=== PATIENT | female | born 1970 | race Caucasian/White ===

== ENCOUNTER 2019-06-24 14:29 | Emergency (ER) | payer OTHER ==
[~2019-06-24] VITALS: Ht 152.4 cm; Wt 60.0 kg
[~2019-06-24 14:29] MED LIST: CIPR500T4 PO; FER325 PO; HYDR-3601 ORAL; HYDR-4011 PO
[2019-06-24 14:34] VITALS: Ht 152.4 cm; Wt 60.0 kg
[2019-06-24] MEDS ORDERED: HYDROmorphONE 1 MG/ML SYG IV STA (16:09)
[2019-06-24] MEDS ORDERED: ONDANSETRON 4 MG INJ IV STA (16:09)
[2019-06-24 18:08] VITALS: BP 121/71; PULSE 70; RESP 14
== END 2019-06-24 18:09 | disposition home or self-care (01) ==
LOC: E/R 14:29
DX: K80.50 Calculus of bile duct without cholangitis or cholecystitis without obstruction (principal); D64.9 Anemia, unspecified
CPT/HCPCS: 76705; 80053; 83690; 84703; 85025; 96374; 96375; J1170; J2405; Z7502

== ENCOUNTER 2019-06-25 11:17 | Inpatient (IN) | payer OTHER ==
[~2019-06-25] VITALS: Ht 152.4 cm; Wt 64.5 kg
[2019-06-25 11:26] VITALS: Ht 152.4 cm; Wt 64.5 kg
[2019-06-25] MEDS ORDERED: ONDANSETRON 4 MG INJ IV STA (11:31)
[2019-06-25] MEDS ORDERED: morphine 4 MG/ML VIAL IV STA (11:31)
[2019-06-25] MEDS ORDERED: NACL 0.9% 3 ML SYG IV SCH (12:30)
[2019-06-25] MEDS ORDERED: ONDANSETRON 4 MG INJ IV PRN (12:30)
[2019-06-25] MEDS ORDERED: ACETAMINOPHEN 325 MG TAB PO PRN ×2 (12:30)
[2019-06-25] MEDS: PIPER-TAZO 3.375 GM IV (PMX) 100 ML IVPB SCH ×3 (12:51→23:18)
[2019-06-25] MEDS ORDERED: hydrALAzine 20 MG INJ IV PRN (13:00)
[2019-06-25] MEDS: SOD CHLORIDE 0.9% 1,000 ML IV SCH ×2 (13:00→20:59)
[2019-06-25] MEDS ORDERED: SOD FERRIC GLUC COMPLX 125 MG in SOD CHLORIDE 0.9% 100 ML IVPB ONE (14:30)
[2019-06-25] MEDS ORDERED: CEFTRIAXONE 1 GM/50 ML (PMX) 50 ML IVPB ONE (15:00)
[2019-06-25 20:30] VITALS: BP 126/67; PULSE 73; RESP 20
[2019-06-25] MEDS: ONDANSETRON 4 MG INJ IV PRN (20:52)
[2019-06-25] MEDS: morphine 2 MG INJ IV PRN (20:52)
[2019-06-26] VITALS (13 sets, daily range): BP systolic 103–146; BP diastolic 57–82; PULSE 58–98; RESP 10–26
[2019-06-26] MEDS: PIPER-TAZO 3.375 GM IV (PMX) 100 ML IVPB SCH ×4 (05:09→23:04)
[2019-06-26] MEDS: morphine 2 MG INJ IV PRN ×3 (05:10→22:09)
[2019-06-26] MEDS ORDERED: FLU VACC QS 2019-20 (6MOS UP) 0.5 ML SYG IM* ONE (09:00)
[2019-06-26] MEDS ORDERED: ROCURONIUM 50 MG INJ ONE (12:49)
[2019-06-26] MEDS ORDERED: MIDAZOLAM 1 MG/ML 2 ML INJ ONE (12:49)
[2019-06-26] MEDS ORDERED: ROPIVACAINE 0.5 % 30 ML VIAL ONE (12:52)
[2019-06-26] MEDS ORDERED: METOCLOPRAMIDE 10 MG INJ ONE (12:52)
[2019-06-26] MEDS ORDERED: NEOSTIGMINE 3 MG/3 ML SYRINGE ONE (13:16)
[2019-06-26] MEDS ORDERED: GLYCOPYRROLATE 0.4 MG INJ ONE (13:16)
[2019-06-26] MEDS ORDERED: KETOROLAC 30 MG INJ ONE (13:16)
[2019-06-26] MEDS ORDERED: PROPOFOL 20 ML ONE ×2 (13:16→13:28)
[2019-06-26] MEDS ORDERED: EPHEDrine 25 MG/5 ML SYG ONE (13:24)
[2019-06-26] MEDS ORDERED: METOPROLOL 5 MG INJ ONE (13:28)
[2019-06-26] MEDS: SOD CHLORIDE 0.9% 1,000 ML IV SCH (13:34)
[2019-06-26] MEDS ORDERED: SUGAMMADEX SODIUM 200 MG/2 ML VIAL IV ONE (13:43)
[2019-06-26] MEDS: CEFAZOLIN 2 GM/50 ML (PMX) 50 ML IVPB SCH ×2 (14:00→21:01)
[2019-06-26] MEDS ORDERED: hydrALAzine 20 MG INJ IV PRN (15:00)
[2019-06-26] MEDS ORDERED: DIPHENHYDRAMINE 50 MG INJ IV PRN (15:00)
[2019-06-26] MEDS ORDERED: ONDANSETRON 4 MG INJ IV PRN (15:00)
[2019-06-26] MEDS ORDERED: MEPERIDINE 25 MG INJ IV PRN (15:00)
[2019-06-26] MEDS ORDERED: HYDROmorphONE 1 MG/5 ML IV SYRINGE IV PRN ×3 (15:00)
[2019-06-26] MEDS ORDERED: LABETALOL HCL 20MG INJ IV PRN (15:00)
[2019-06-26] MEDS ORDERED: FENTAnyl 50 MCG/ML VIAL IV PRN ×3 (15:00)
[2019-06-26] MEDS: ONDANSETRON 4 MG INJ IV PRN (15:09)
[2019-06-26] MEDS: SOD FERRIC GLUC COMPLX 125 MG in SOD CHLORIDE 0.9% 100 ML IVPB SCH (16:17)
[2019-06-27] VITALS (8 sets, daily range): BP systolic 103–146; BP diastolic 60–79; PULSE 64–79; RESP 18–20
[2019-06-27] MEDS: SOD CHLORIDE 0.9% 1,000 ML IV SCH ×3 (03:21→19:54)
[2019-06-27] MEDS: morphine 2 MG INJ IV PRN ×3 (03:22→19:51)
[2019-06-27] MEDS: HYDROCODONE/APAP (5/325) TAB PO PRN ×2 (04:19→17:38)
[2019-06-27] MEDS: PIPER-TAZO 3.375 GM IV (PMX) 100 ML IVPB SCH ×3 (05:13→17:38)
[2019-06-27] MEDS: CEFAZOLIN 2 GM/50 ML (PMX) 50 ML IVPB SCH (06:03)
[2019-06-27] MEDS: SOD FERRIC GLUC COMPLX 125 MG in SOD CHLORIDE 0.9% 100 ML IVPB SCH (13:36)
[2019-06-27] MEDS: FERROUS SULFATE (EC) 325 MG TAB PO SCH (20:04)
[2019-06-28] MEDS: PIPER-TAZO 3.375 GM IV (PMX) 100 ML IVPB SCH ×3 (00:47→13:09)
[2019-06-28 02:00] VITALS: BP 120/67; PULSE 68; RESP 18
[2019-06-28] MEDS: morphine 2 MG INJ IV PRN (05:47)
[2019-06-28] MEDS: SOD CHLORIDE 0.9% 1,000 ML IV SCH (07:39)
[2019-06-28] MEDS: HYDROCODONE/APAP (5/325) TAB PO PRN (07:45)
[2019-06-28 08:00] VITALS: BP 151/78; PULSE 67; RESP 18
[2019-06-28] MEDS: FERROUS SULFATE (EC) 325 MG TAB PO SCH (08:10)
[2019-06-28 14:00] VITALS: BP 135/66; PULSE 74; RESP 18
[2019-06-28] MEDS: SOD FERRIC GLUC COMPLX 125 MG in SOD CHLORIDE 0.9% 100 ML IVPB SCH (14:09)
== END 2019-06-28 15:55 | disposition home or self-care (01) | DRG 418 ==
LOC: E/R 11:17 → MS3 12:14
PROVIDERS: ADMIT Internal Medicine; ATTEND Internal Medicine
PROC: 0FT44ZZ Resection of Gallbladder, Percutaneous Endoscopic Approach (ICD-10-PCS; principal; 2019-06-26 13:30)
PROC: 30233N1 Transfusion of Nonautologous Red Blood Cells into Peripheral Vein, Percutaneous Approach (ICD-10-PCS; 2019-06-27)
DX: K80.10 Calculus of gallbladder with chronic cholecystitis without obstruction (principal); N39.0 Urinary tract infection, site not specified; D50.9 Iron deficiency anemia, unspecified
CPT/HCPCS: 36415; 36430; 71045; 74181; 80053; 80061; 81001; 81025; 83036; 83540; 83690; 84484; 85025; 85610; 86850; 86900; 86901; 86920; 87081; 87086; 88304; 90686; 93005; 96374; 96375; J0690; J1885; J2250; J2270; J2405; J2543; J2710; J2765; J2795; J2916; J7030; P9016